=== PATIENT | male | born 1995 | race Caucasian/White ===

== ENCOUNTER 2016-09-30 13:34 | Emergency (ER) | payer SELFPAY ==
[2016-09-30 13:34] VITALS: O2SAT 100
[2016-09-30 16:02] VITALS: BP 129/67; PULSE 69; RESP 16; TEMP 99.2
== END 2016-09-30 15:25 | disposition home or self-care (01) | DRG 153 ==
LOC: ED 13:34
DX: J01.90 Acute sinusitis, unspecified (principal)
CPT/HCPCS: 99282

== ENCOUNTER 2016-10-29 14:21 | Emergency (ER) | payer SELFPAY ==
[2016-10-29 14:21] VITALS: O2SAT 100
[2016-10-29] MEDS ORDERED: SODIUM CHLORIDE 0.9% 1000 ML SOL IV ONE (14:50)
[2016-10-29] MEDS ORDERED: MORPHINE SULFATE 10 MG/ML SOL IV ONE (15:03)
[2016-10-29 15:07] LABS: BASOPHILS % (AUTO) 0 % (0-3); EOSINOPHILS % (AUTO) 1 % (0-9); HEMATOCRIT 42 % (39-53); MEAN CORPUSCULAR HGB CONC 36.2 gm/dl (32.0-36.0); MEAN CORPUSCULAR VOLUME 88 fL (80-100); MONOCYTES % (AUTO) 8.3 % (0-12); NEUTROPHILS % (AUTO) 66.4 % (37-80)
[2016-10-29] MEDS ORDERED: MORPHINE SULFATE 10 MG/ML SOL ONE (15:26)
[2016-10-29 15:46] LABS: ALBUMIN 3.8 gm/dl (3.4-5.0); POTASSIUM 3.6 mMol/L (3.5-5.1)
[2016-10-29 17:10] VITALS: TEMP 99
[2016-10-29 17:11] VITALS: BP 106/75; PULSE 65; RESP 18
== END 2016-10-29 16:55 | disposition home or self-care (01) | DRG 392 ==
LOC: ED 14:21
DX: K52.9 Noninfective gastroenteritis and colitis, unspecified (principal); I88.0 Nonspecific mesenteric lymphadenitis
CPT/HCPCS: 36415; 74177; 80053; 82150; 85025; 99284; J2270; Q9967

== ENCOUNTER 2018-08-04 18:42 | Emergency (ER) | payer SELFPAY ==
[2018-08-04 18:52] VITALS: TEMP 99.5
[2018-08-04] MEDS ORDERED: TDAP VACCINE 0.5 ML SUS IM ONE (19:04)
[2018-08-04] MEDS ORDERED: FENTANYL 100MCG/2ML SOL IV ONE (19:28)
[2018-08-04] MEDS ORDERED: SODIUM CHLORIDE 0.9% 1000ML 1,000 ML IV ONE (19:29)
[2018-08-04 19:36] LABS: BASOPHILS % (AUTO) 0 % (0-3); EOSINOPHILS % (AUTO) 0 % (0-9); HEMATOCRIT 46 % (39-53); HEMOGLOBIN 15.7 gm/dl (13.5-17.7); LYMPHOCYTES % (AUTO) 12.8 % (10-50); MEAN CORPUSCULAR HEMOGLOBIN 30.9 pg (27.0-32.0); MEAN CORPUSCULAR HGB CONC 33.9 gm/dl (32.0-36.0); MEAN CORPUSCULAR VOLUME 91 fL (80-100); MONOCYTES % (AUTO) 3.6 % (0-12); NEUTROPHILS % (AUTO) 83.4 % (37-80)
[2018-08-04 19:53] LABS: ALBUMIN 3.9 gm/dl (3.4-5.0); BILIRUBIN,TOTAL 0.5 mg/dl (0.2-1.0); CALCIUM 9.4 mg/dl (8.5-10.1); CARBON DIOXIDE 22.7 mEq/L (21-32); CREATININE 0.97 mg/dl (0.80-1.30); POTASSIUM 3.6 mMol/L (3.5-5.1); TOTAL PROTEIN 7.3 gm/dl (6.4-8.2)
[2018-08-04 19:58] LABS: AMPHETAMINES NEGATIVE (NEGATIVE); BARBITUATES NEGATIVE (NEGATIVE); BENZODIAZEPINES NEGATIVE (NEGATIVE); CANNABINOL(THC) POSITIVE (NEGATIVE); COCAINE(COC) NEGATIVE (NEGATIVE); METHADONE NEGATIVE (NEGATIVE); METHAMPHETAMINES NEGATIVE (NEGATIVE); OPIATES(OPI) NEGATIVE (NEGATIVE); OXYCODONE(OXY) NEGATIVE (NEGATIVE); PROPOXYPHENE(PPX) NEGATIVE (NEGATIVE); TRICYCLIC ANTIDEPRESSANTS NEGATIVE (NEGATIVE)
[2018-08-04 20:32] VITALS: RESP 18
[2018-08-04] MEDS ORDERED: KETOROLAC TROMETHAMINE 30 MG/ML SOL IV ONE (20:54)
[2018-08-05 01:12] VITALS: O2SAT 96
[2018-08-05 01:13] VITALS: BP 124/78; PULSE 87
== END 2018-08-04 21:35 | disposition home or self-care (01) | DRG 999 ==
LOC: ED 18:42
DX: W10.8XXA Fall (on) (from) other stairs and steps, initial encounter (principal); S00.81XA Abrasion of other part of head, initial encounter; S20.211A Contusion of right front wall of thorax, initial encounter; M54.2 Cervicalgia; R40.2362 Coma scale, best motor response, obeys commands, at arrival to emergency department; R40.2142 Coma scale, eyes open, spontaneous, at arrival to emergency department; R40.2252 Coma scale, best verbal response, oriented, at arrival to emergency department
CPT/HCPCS: 36415; 70450; 71100; 72125; 73552; 80053; 80305; 85025; 90471; 90715; 96365; 96366; 99283; 99285; G0390